=== PATIENT | female | born 1965 | race Caucasian/White ===

== ENCOUNTER → 2020-03-12 | Outpatient (CLI) | payer MEDICARE | LOC: M.RAD 09:30 | DX: Z12.31 Encounter for screening mammogram for malignant neoplasm of breast (principal) ==

== ENCOUNTER → 2020-03-20 | Outpatient (CLI) | payer MEDICARE | LOC: M.RAD 03-16 08:43 | DX: N63.10 Unspecified lump in the right breast, unspecified quadrant (principal); N64.89 Other specified disorders of breast ==

== ENCOUNTER → 2020-03-22 | Outpatient (CLI) | payer MEDICARE ==
--- NOTE | 2020-03-26 14:09 | PATH ---
[address] [address] PATHOLOGY RPT PROCEDURE Name: LYNDA,TAMMIE Molina Room: [facility].#: [id number] Admission: 03/22/20 Date of : 63 Discharge: Report #: [id number] Path Case #: [id number] [facility] Accession Number: [id number] . 01 Material submitted: . breast - RIGHT BREAST TISSUE. Modifiers: right . 01 Clinical history: . Right breast stereotactic biopsy for nodule . 02 Diagnosis: Right breast nodule, stereotactic biopsy: - Benign breast tissue consisting predominantly of fat, with minimal chronic inflammation, negative for atypia. (See comment) . (EMILY:keegan; 03/26/2020) [facility] 03/26/2020 1030 Local . 02 Comment: Reviewed with Dr. Leandro Sanford, who agrees with the diagnosis. . (EMILY:keegan; 03/26/2020) . 02 Electronically signed: . Carroll Velasquez MD, Pathologist NPI- [id number] . 01 Gross description: . The specimen is received in formalin, labeled "Tammie Wang, right breast nodule" and consists of multiple yellow-lovelace fibroadipose breast needle cores measuring from 0.4-2.3 cm in length and 0.3 cm in diameter. They were collected at 11:05 and placed in formalin at 11:10 on 03/22/2020. The cold ischemic time is 5 minutes and total time in formalin is greater than 6 hours and less than 72. They are entirely submitted in A1-A3. ([facility]; 03/23/2020) JFQ/JFQ 03/23/2020 0907 Local . 02 Pathologist provided ICD-10: N61.0 . 02 CPT . 273355 Specimen Comment: A courtesy copy of this report has been sent to [phone] Specimen Comment: [phone], , Specimen Comment: Report sent to ,DR PALENCIA,DR LAMAS / DR HARPER Performed at: [address] [place] [address] PATHOLOGY RPT PROCEDURE Name: TAMMIE WANG Room: [facility]#: [id number] Admission: 03/22/20 Date of : 63 Discharge: Report #: [id number] Path Case #: [id number] [facility] [place] [address] [facility] [address], [place], [place] [id number] MD Jeffrey Cary MD Phone: [phone] Performed at: 02 [facility] [address], [place], [place] [id number] MD Carroll Velasquez MD Phone: [phone]
== END | disposition home or self-care (01) ==
LOC: M.RAD 10:00
DX: N61.0 Mastitis without abscess (principal); R92.1 Mammographic calcification found on diagnostic imaging of breast

== ENCOUNTER → 2020-04-16 | Outpatient (CLI) | payer MEDICARE | LOC: M.MRI 11:30 | DX: N63.10 Unspecified lump in the right breast, unspecified quadrant (principal) ==